=== PATIENT | female | born 1985 | race Caucasian/White ===

== ENCOUNTER 2017-11-28 08:24 | Outpatient (CLI) | payer OTHER | END 2017-11-28 08:40 | disposition home or self-care (01) | LOC: MRI 08:24 | DX: G44.52 New daily persistent headache (NDPH) (principal); R20.2 Paresthesia of skin | CPT/HCPCS: 70552 ==

== ENCOUNTER 2021-10-29 15:15 | Emergency (ER) | payer OTHER ==
[~2021-10-29] VITALS: Ht 170.2 cm; Wt 63.5 kg
[2021-10-29] MEDS ORDERED: PRENA1 CHEW TA1.4 MG (15:31)
== END 2021-10-29 19:34 | disposition home or self-care (01) ==
LOC: ER 15:15
DX: R51.9 Headache, unspecified (principal); F41.9 Anxiety disorder, unspecified

== ENCOUNTER → 2022-02-19 | Emergency (ER) | payer OTHER ==
[~2022-02-19] VITALS: Ht 170.2 cm; Wt 63.5 kg
[~2022-02-19] MED LIST: PRENA1 CHEW TA1.4 MG
== END | disposition home or self-care (01) ==
LOC: ER 12:55
DX: R10.84 Generalized abdominal pain (principal)